=== PATIENT | male | born 1980 | race Caucasian/White ===

== ENCOUNTER 2021-06-21 15:01 | Inpatient (IN) | payer OTHER ==
[~2021-06-21] VITALS: Ht 167.6 cm; Wt 65.0 kg
[~2021-06-21 15:01] MED LIST: INSUINJ37 SC; METF-370 PO
[2021-06-21] MEDS ORDERED: InsuLIN R (HUMAN) 100 UNITS in SODIUM CHL 0.9% 99 ML IV SCH (15:45)
[2021-06-21] MEDS ORDERED: INSULIN LANTUS (GLARGINE) 1 /0.01ml (100units/ml) SC ONE (15:45)
[2021-06-21] MEDS ORDERED: DEXTROSE (50%) 50ML SYRG IV PRN (15:45)
[2021-06-21] MEDS ORDERED: SODIUM CHLORIDE 0.9% 1,000 ML IVB ONE (15:45)
[2021-06-21 15:54] LABS: Mean Corpuscular Hemoglobin 30.2 pg (28.0-32.0)
[2021-06-21 15:55] LABS: Mean Corpuscular Hgb Conc. 32.9 g/dL (32.0-36.0); Mean Corpuscular Volume 91.6 fL (80.0-100.0); Red Blood Cells 6.29 10^6/uL (4.5-5.90); Red Cell Distribution Width 14.2 % (11.8-14.3)
[2021-06-21 15:59] LABS: Hematocrit 57.6 % (41.0-53.0)
[2021-06-21] MEDS: ACCU-CHEK COMFORT CURVE STRIP VI SCH ×5 (15:59→22:37)
[2021-06-21 16:01] LABS: Basophils % (manual) 0 (0.0-2.0); Blast Cells 0; Eosinophils % (manual) 0 (0-7); Promyelocytes % 0
[2021-06-21 16:12] LABS: BUN/Creatinine Ratio 14.1; Calcium 9.4 mg/dL (8.5-10.1); Potassium 4.9 mmol/L (3.5-5.1)
[2021-06-21 17:33] LABS: Band Neutrophils % (manual) 11; Lymphocytes % (manual) 7 (10.0-50.0); Metamyelocytes % 1; Monocytes % (manual) 6 (0-12); Myelocytes % 1; Reactive Lymphocytes 1
[2021-06-21] MEDS ORDERED: ONDANSETRON HCL 4 MG/2 ML VIAL IV ONE ×2 (18:15→20:45)
[2021-06-22] MEDS: ACCU-CHEK COMFORT CURVE STRIP VI SCH ×9 (00:09→22:20)
[2021-06-22] MEDS ORDERED: SODIUM CHLORIDE 0.9% 2,050 ML IV ONE (00:15)
[2021-06-22] MEDS ORDERED: DEXTROSE (50%) 50ML SYRG IV PRN ×3 (00:30→10:15)
[2021-06-22] MEDS ORDERED: ENOXAPARIN SOD 40 MG/0.4 ML SYRINGE SC ONE (00:30)
[2021-06-22] MEDS ORDERED: FAMOTIDINE (10MG/ML) 2ML VL IV ONE (00:30)
[2021-06-22] MEDS ORDERED: DOCUSATE SOD 100 MG CAP PO PRN (00:30)
[2021-06-22] MEDS: ONDANSETRON HCL 4 MG/2 ML VIAL IV PRN ×3 (00:42→11:58)
[2021-06-22] MEDS ORDERED: InsuLIN R (HUMAN) 100 UNITS in SODIUM CHL 0.9% 99 ML IV SCH (02:30)
[2021-06-22 02:42] LABS: BUN/Creatinine Ratio 22.4; Calcium 8.2 mg/dL (8.5-10.1); Potassium 4.3 mmol/L (3.5-5.1)
[2021-06-22] MEDS ORDERED: ACCU-CHEK COMFORT CURVE STRIP VI SCH (06:00)
[2021-06-22] MEDS ORDERED: InsuLIN REG 1unit/0.01ml Soln (100units/ml) SC SCH ×2 (06:00→22:00)
[2021-06-22] MEDS ORDERED: SOD CHL 0.45% 1,000 ML IV SCH (06:30)
[2021-06-22] MEDS ORDERED: METOCLOPRAMIDE HCL 5MG/ml INJ 2ml VIAL IV ONE (06:30)
[2021-06-22 07:31] LABS: Albumin 3.7 g/dL (3.4-5.0); BUN/Creatinine Ratio 24.6; Bilirubin, Total 0.9 mg/dL (0.2-1.0); Total Protein 7.1 g/dL (6.4-8.2)
[2021-06-22 07:41] LABS: Calcium 8.9 mg/dL (8.5-10.1)
[2021-06-22] MEDS ORDERED: INSULIN LANTUS (GLARGINE) 1 /0.01ml (100units/ml) SC SCH (10:00)
[2021-06-22 10:31] LABS: Urine Bacteria NONE SEEN /hpf (None Seen); Urine Blood Negative /uL (Negative); Urine Hyaline Cast FEW /lpf (0 - 2); Urine Mucus FEW (None Seen); Urine Specific Gravity 1.023 (1.001-1.035); Urine WBC 2 /hpf (0 - 3)
[2021-06-22] MEDS ORDERED: INSULIN LANTUS (GLARGINE) 1 /0.01ml (100units/ml) SC ONE (10:45)
[2021-06-22 11:03] LABS: Hematocrit 48.5 % (41.0-53.0); Hemoglobin 16.6 g/dL (13.5-17.5); Mean Corpuscular Hemoglobin 30.2 pg (28.0-32.0); Mean Corpuscular Hgb Conc. 34.2 g/dL (32.0-36.0); Mean Corpuscular Volume 88.3 fL (80.0-100.0); Red Blood Cells 5.49 10^6/uL (4.5-5.90); Red Cell Distribution Width 13.6 % (11.8-14.3)
[2021-06-22 11:07] LABS: Band Neutrophils % (manual) 0; Basophils % (manual) 0 (0.0-2.0); Blast Cells 0; Eosinophils % (manual) 0 (0-7); Metamyelocytes % 0; Myelocytes % 0; Promyelocytes % 0; Reactive Lymphocytes 0
[2021-06-22 11:34] LABS: Lymphocytes % (manual) 7 (10.0-50.0); Monocytes % (manual) 12 (0-12)
[2021-06-22] MEDS: InsuLIN REG 1unit/0.01ml Soln (100units/ml) SC SCH ×2 (11:49→16:38)
[2021-06-22] MEDS ORDERED: INSUINJ2 SC (12:20)
[2021-06-22] MEDS ORDERED: INSLANTI SC (12:20)
[2021-06-22] MEDS ORDERED: PANTOPRAZOLE 40 MG/10 ML VIAL INJ IV ONE (12:30)
[2021-06-22 13:00] VITALS: BP 132/85
[2021-06-22] MEDS: SOD CHL 0.45% 1,000 ML IV SCH (13:01)
[2021-06-22] MEDS: METOCLOPRAMIDE HCL 5MG/ml INJ 2ml VIAL IV SCH ×2 (13:57→22:20)
[2021-06-22 17:00] VITALS: BP 122/79
[2021-06-22 22:00] VITALS: BP 103/77
[2021-06-22] MEDS: INSULIN LANTUS (GLARGINE) 1 /0.01ml (100units/ml) SC SCH (22:28)
[2021-06-22 23:44] LABS: INR 1.03 (0.9-1.15)
[2021-06-23] MEDS: SOD CHL 0.45% 1,000 ML IV SCH ×2 (02:22→15:14)
[2021-06-23 04:40] LABS: Basophils # (auto) 0 10 ^3/uL (0-0.2); Basophils % (auto) 0.4 % (0.0-2.0); Eosinophils # (auto) 0 10 ^3/uL (0-0.8); Eosinophils % (auto) 0.1 % (0.0-7.0); Hematocrit 41.1 % (41.0-53.0); Hemoglobin 14.6 g/dL (13.5-17.5); Lymphocytes # (auto) 1.8 10 ^3/uL (0.4-5.4); Lymphocytes % (auto) 17.4 % (10.0-50.0); Mean Corpuscular Hgb Conc. 35.5 g/dL (32.0-36.0); Mean Corpuscular Volume 87.3 fL (80.0-100.0); Monocytes # (auto) 0.9 10 ^3/uL (0-1.3); Monocytes % (auto) 9.1 % (0.0-12.0); Neutrophils # (auto) 7.5 10 ^3/uL (1.6-8.6); Nucleated Red Blood Cells % 0.1 %; Red Blood Cells 4.71 10^6/uL (4.5-5.90); Red Cell Distribution Width 13.6 % (11.8-14.3); White Blood Cell 10.3 10^3/uL (4.4-10.8)
[2021-06-23 04:56] LABS: INR 1.01 (0.9-1.15); Partial Thromboplastin Time 24.8 sec (23.6-33.0)
[2021-06-23 05:00] VITALS: BP 140/91
[2021-06-23] MEDS: METOCLOPRAMIDE HCL 5MG/ml INJ 2ml VIAL IV SCH ×2 (05:50→14:00)
[2021-06-23] MEDS: ACCU-CHEK COMFORT CURVE STRIP VI SCH ×3 (06:41→17:41)
[2021-06-23] MEDS: InsuLIN REG 1unit/0.01ml Soln (100units/ml) SC SCH ×3 (06:42→17:00)
[2021-06-23 07:58] LABS: Calcium 8.6 mg/dL (8.5-10.1); Potassium 3.5 mmol/L (3.5-5.1)
[2021-06-23 09:00] VITALS: BP 144/99
[2021-06-23] MEDS: INSULIN LANTUS (GLARGINE) 1 /0.01ml (100units/ml) SC SCH (09:44)
[2021-06-23] MEDS ORDERED: PANTOPRAZOLE 40 MG/10 ML VIAL INJ IV SCH (10:00)
[2021-06-23] MEDS ORDERED: fentaNYL CITRATE 100 MCG/2 ML VL ONE (11:03)
[2021-06-23] MEDS ORDERED: diphenhdrAMINE HCL 50 MG/1 ML VL ONE (11:03)
[2021-06-23] MEDS ORDERED: MIDAZOLAM HCL 5 MG/ML-1ML VIAL ONE (11:03)
[2021-06-23] MEDS ORDERED: LIDOCAINE VISCOUS 2% 15ML UD ONE (11:03)
[2021-06-23 12:00] VITALS: BP 129/82
[2021-06-23 16:00] VITALS: BP 119/75
[2021-06-23] MEDS ORDERED: PANT40TA2 PO (16:00)
[2021-06-23] MEDS ORDERED: SUCR1SUS10 PO (16:00)
[2021-06-23 18:15] VITALS: BP 119/79
== END 2021-06-23 19:14 | disposition home or self-care (01) | DRG 638 ==
LOC: ER 15:01 → TELE 06-22 00:20 → TELE-WESTW 06-22 11:11 → WEST WING 06-22 12:21
PROVIDERS: ADMIT Internal Medicine; ATTEND Internal Medicine
PROC: 0DB68ZX Excision of Stomach, Via Natural or Artificial Opening Endoscopic, Diagnostic (ICD-10-PCS; 2021-06-23)
PROC: 0DB48ZX Excision of Esophagogastric Junction, Via Natural or Artificial Opening Endoscopic, Diagnostic (ICD-10-PCS; 2021-06-23)
PROC: 0DB98ZX Excision of Duodenum, Via Natural or Artificial Opening Endoscopic, Diagnostic (ICD-10-PCS; principal; 2021-06-23 15:05)
DX: E11.10 Type 2 diabetes mellitus with ketoacidosis without coma (principal); N39.0 Urinary tract infection, site not specified; E87.0 Hyperosmolality and hypernatremia; N17.9 Acute kidney failure, unspecified; K22.10 Ulcer of esophagus without bleeding; F17.210 Nicotine dependence, cigarettes, uncomplicated; E86.0 Dehydration; K44.9 Diaphragmatic hernia without obstruction or gangrene; E11.65 Type 2 diabetes mellitus with hyperglycemia; J45.909 Unspecified asthma, uncomplicated; K29.70 Gastritis, unspecified, without bleeding; D72.828 Other elevated white blood cell count; Z79.4 Long term (current) use of insulin; Z83.3 Family history of diabetes mellitus
CPT/HCPCS: 36415; 36600; 43239; 71045; 76705; 80048; 80053; 81001; 82010; 82805; 82962; 83036; 83690; 84100; 85007; 85025; 85027; 85610; 85730; 86850; 86900; 86901; 93005; 96365; 96366; 96372; 96375; 99291; C9113; G0378; J1815; J2250; J2405; J3490

== ENCOUNTER 2021-08-14 23:17 | Emergency (ER) | payer OTHER ==
[~2021-08-14] VITALS: Ht 167.6 cm; Wt 70.3 kg
[~2021-08-14 23:17] MED LIST changes: +INSLANTI SC; +INSUINJ2 SC; -METF-370 PO; +PANT40TA2 PO; +SUCR1SUS10 PO
[2021-08-15 00:59] LABS: Albumin 4.2 g/dL (3.4-5.0); Calcium 8.9 mg/dL (8.5-10.1)
[2021-08-15] MEDS ORDERED: SODIUM CHLORIDE 0.9% 1,000 ML IV ONE (01:00)
[2021-08-15 01:06] LABS: BUN/Creatinine Ratio 22.4; Bilirubin, Total 0.9 mg/dL (0.2-1.0); Potassium 4.9 mmol/L (3.5-5.1); Total Protein 7.8 g/dL (6.4-8.2)
[2021-08-15 01:18] LABS: Basophils # (auto) 0 10 ^3/uL (0-0.2); Basophils % (auto) 0.1 % (0.0-2.0); Eosinophils # (auto) 0 10 ^3/uL (0-0.8); Lymphocytes # (auto) 0.9 10 ^3/uL (0.4-5.4); Mean Corpuscular Hemoglobin 30.5 pg (28.0-32.0); Monocytes # (auto) 0.7 10 ^3/uL (0-1.3); Neutrophils # (auto) 4.5 10 ^3/uL (1.6-8.6); Red Blood Cells 5.75 10^6/uL (4.5-5.90); White Blood Cell 6.2 10^3/uL (4.4-10.8)
[2021-08-15] MEDS ORDERED: IOHEXOL 300 MG/ML 100ML BOTTLE IJ ONE (02:01)
[2021-08-15 02:02] LABS: Hematocrit 48.7 % (41.0-53.0); Hemoglobin 17.5 g/dL (13.5-17.5); Monocytes % (auto) 12.3 % (0.0-12.0); Neutrophils % (auto) 74.6 % (37.0-80.0); Nucleated Red Blood Cells % 0.7 %
[2021-08-15 02:03] LABS: Mean Corpuscular Hgb Conc. 35.9 g/dL (32.0-36.0); Mean Corpuscular Volume 84.9 fL (80.0-100.0); Red Cell Distribution Width 13.6 % (11.8-14.3)
[2021-08-15 05:02] VITALS: BP 124/79
[2021-08-15 05:06] LABS: Urine WBC None Seen /hpf (0 - 3)
[2021-08-15 05:31] LABS: Urine Bacteria NONE SEEN /hpf (None Seen); Urine Blood Negative /uL (Negative); Urine Hyaline Cast FEW /lpf (0 - 2); Urine Mucus FEW (None Seen); Urine Specific Gravity 1.048 (1.001-1.035)
== END 2021-08-15 06:40 | disposition home or self-care (01) ==
LOC: EDBD 23:17 → ER 23:17
DX: E11.65 Type 2 diabetes mellitus with hyperglycemia (principal); R11.2 Nausea with vomiting, unspecified; R07.89 Other chest pain; J45.909 Unspecified asthma, uncomplicated; Z90.89 Acquired absence of other organs
CPT/HCPCS: 36415; 74177; 80053; 81001; 82962; 85025; 93005; 96360; 99285; J7030; Q9967